=== PATIENT | male | born 1945 | race Caucasian/White ===

== ENCOUNTER 2021-03-25 11:44 | Emergency (ER) | payer OTHER ==
[~2021-03-25] VITALS: Ht 172.7 cm; Wt 70.3 kg
[2021-03-25 11:45] VITALS: BP_SYST 162
--- NOTE | 2021-03-25 11:45 | NUR ---
BROUGHT BACK TO HALLWAY BED AND TRIAGED. REPORT GIVEN TO FERNIE
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
--- NOTE | 2021-03-25 13:05 | NUR ---
ER DR. GOMEZ EXAMINING PT
[2021-03-25 15:23] VITALS: BP_SYST 142
--- NOTE | 2021-03-25 15:26 | NUR ---
Patient given written and verbal discharge instructions and verbalizes understanding. ER MD discussed with patient the results and treatment provided. Patient in stable condition. ID arm band removed. No Rx given Patient educated on pain management and to follow up with PMD. Pain Scale 0/10 Opportunity for questions provided and answered.
== END 2021-03-25 15:26 | disposition home or self-care (01) ==
LOC: SED 11:44
DX: L72.9 Follicular cyst of the skin and subcutaneous tissue, unspecified (principal); M79.602 Pain in left arm; Z88.0 Allergy status to penicillin
CPT/HCPCS: 93971; 99284

== ENCOUNTER 2022-01-06 09:37 | Emergency (ER) | payer OTHER ==
[~2022-01-06] VITALS: Ht 170.2 cm; Wt 68.0 kg
[2022-01-06 09:45] VITALS: BP_SYST 139
[2022-01-06] MEDS: METOCLOPRAMIDE HCL 10 MG/2 ML VIAL IVP ONE (10:32)
[2022-01-06] MEDS: MECLIZINE HCL 25 MG TABLET (ANITVERT) PO ONE (10:33)
[2022-01-06 10:38] LABS: BASOPHILS % (AUTO) 0.7 % (0.0-2.0); EOSINOPHILS # (AUTO) 0.2 K/uL (0.0-0.4); EOSINOPHILS % (AUTO) 3.4 % (0.0-4.0); LYMPHOCYTES # (AUTO) 1.1 K/uL (1.0-5.5); LYMPHOCYTES % (AUTO) 19.9 % (20.5-51.5); MEAN CORPUSCULAR HEMOGLOBIN 28 pg (27-31); MEAN CORPUSCULAR HGB CONC 33 % (32-36); MEAN CORPUSCULAR VOLUME 83 fL (79.0-98.0); MONOCYTES # (AUTO) 0.4 K/uL (0.0-1.0); MONOCYTES % (AUTO) 7.9 % (1.7-9.3); NEUTROPHILS # (AUTO) 3.6 K/uL (1.8-7.7); NEUTROPHILS % (AUTO) 68.1 % (40.0-70.0); PLATELET COUNT (AUTO) 150 K/uL (130-430); RED BLOOD CELL COUNT(AUTO) 5.07 MIL/uL (4.2-6.2); RED CELL DISTRIBUTION WIDTH 16.8 % (9.0-15.0); WHITE BLOOD COUNT (AUTO) 5.3 K/uL (4.8-10.8)
[2022-01-06 10:53] LABS: ANION GAP 7 (5-15); CALCIUM 8.8 mg/dL (8.4-11.0); CHLORIDE 103 mmol/L (98-107); CREATININE 0.97 mg/dL (0.55-1.30); GLUCOSE 139 mg/dL (70-99); POTASSIUM 3.8 mmol/L (3.5-5.1); SODIUM SERUM 136 mmol/L (136-145); UREA NITROGEN, BLOOD 7 mg/dL (8-21)
[2022-01-06 11:01] LABS: ALANINE AMINOTRANSFERASE 44 U/L (12-78); ALBUMIN 4.3 g/dL (3.4-4.8); ASPARTATE AMINOTRANSFERASE 33 U/L (10-37); TOTAL BILIRUBIN 0.9 mg/dL (0.0-1.0)
[2022-01-06] MEDS ORDERED: MECL-261 PO (12:49)
[2022-01-06 13:28] VITALS: BP_SYST 134
== END 2022-01-06 13:26 | disposition home or self-care (01) ==
LOC: SED 09:37
DX: R42 Dizziness and giddiness (principal); R11.0 Nausea; Z88.0 Allergy status to penicillin; Z79.899 Other long term (current) drug therapy
CPT/HCPCS: 99285; 96374; 70450; 71045; 80053; 82962; 85025; 84484; 36415; 93005; 76376; J8597; J2765